=== PATIENT | female | born 1960 | race African-American/Black ===

== ENCOUNTER 2020-12-04 15:09 | Emergency (ER) | payer BC ==
[2020-12-04] MEDS ORDERED: MORPHINE 4 MG/ML SYR ONE (15:56)
--- NOTE | 2020-12-04 16:15 | RAD REPORT ---
EXAM DESCRIPTION: RAD - Humerus Left - 12/04/2020 4:08 pm CLINICAL HISTORY: Left arm pain status post fall FINDINGS: Comminuted fracture mid left humerus with marked displacement of fracture fragments and a ngulation present at the fracture site
--- NOTE | 2020-12-04 16:16 | RAD REPORT ---
EXAM DESCRIPTION: [place] Single View12/04/2020 4:08 pm CLINICAL HISTORY: Chest pain COMPARISON: none FINDINGS: The lungs appear clear of acute infiltrate. The heart is probably upper limits normal siz e. A central venous catheter has its tip in the superior vena cava IMPRESSION: No acute abnormalities displayed
--- NOTE | 2020-12-04 16:45 | EDPHYS ---
Physician Documentation [facility] Name: Eugenia Lopez Age: 60 yrs Sex: Female : 1960 Arrival Date: 12/04/2020 Time: 15:10 Bed 2 Private MD: ED Physician Raymond Locke HPI: 12/04 15:30 This 60 yrs old Black Female presents to ER via EMS with complaints of Fall Injury, Arm cp Injury. 15:30 The patient or guardian complains of injury, pain, that is acute. cp 15:30 The complaints affect the left upper arm. Context: resulted from a fall. Onset: The cp symptoms/episode began/occurred just prior to arrival. Treatment prior to arrival includes: sling. Associated signs and symptoms: Pertinent negatives: numbness, LOC. Historical: - Allergies: 15:14 No Known Allergies; ll1 - PMHx: 15:14 Diabetes - IDDM; Hypertension; High Cholesterol; ll1 - PSHx: 15:14 port L chest-breast CA/double mastectomy; ll1 - Immunization history:: Flu vaccine is up to date. - Social history:: Smoking status: Patient denies any tobacco usage or history of. - Immunization history: Last tetanus immunization: - up to date. ROS: 15:35 MS/extremity: Positive for injury or acute deformity, swelling, tenderness, of the left cp upper arm, Negative for paresthesias. 15:35 Neck: Negative for pain with movement, pain at rest, stiffness, tenderness, bony cp tenderness. 15:35 Cardiovascular: Negative for chest pain. 15:35 Back: Negative for pain at rest, pain with movement. 15:35 Neuro: Negative for altered mental status, headache, loss of consciousness, syncope. 15:35 All other systems are negative. Exam: 15:42 Constitutional: The patient appears in no acute distress, alert, awake, cp non-diaphoretic, non-toxic, well developed, well nourished. 15:42 Head/Face: Normocephalic, atraumatic. cp 15:42 Neck: C-spine: vertebral tenderness, is not appreciated, crepitus, is not appreciated, ROM/movement: is normal, is supple, without pain, no range of motions limitations. 15:42 Chest/axilla: Inspection: normal, Palpation: is normal, no crepitus, no tenderness. 15:42 Cardiovascular: Rate: normal, Rhythm: regular, Pulses: Pulses are 2+ in left radial artery. 15:42 Respiratory: the patient does not display signs of respiratory distress, Respirations: normal, no use of accessory muscles, no retractions, labored breathing, is not present, Breath sounds: are clear throughout, no decreased breath sounds. 15:42 Abdomen/GI: Inspection: abdomen appears normal, Palpation: abdomen is soft and non-tender, in all quadrants. 15:42 Back: pain, is absent, ROM is normal, vertebral tenderness, is not appreciated. 15:42 Musculoskeletal/extremity: Extremities: grossly normal except: noted in the left upper arm: decreased ROM, deformity, pain, swelling, tenderness, ROM: limited passive range of motion due to pain, in the left upper arm, Perfusion: the extremity is normally perfused throughout, the left upper arm Severe pain noted. 15:42 Neuro: Orientation: to person, place \T\ time. Mentation: is normal. Vital Signs: 15:10 BP 167 / 82; Pulse 80; Resp 17; Temp 98.4; Pulse Ox 95% on R/A; Weight 86.64 kg; Height ll1 5 ft. 2 in. (157.48 cm); Pain 7/10; 16:10 BP 152 / 80; Pulse 78; Resp 18; Pulse Ox 95% on R/A; ph 17:05 BP 149 / 89; Pulse 85; Resp 18; Temp 97.6; Pulse Ox 96% on R/A; ph 15:10 Body Mass Index 34.93 (86.64 kg, 157.48 cm) ll1 Marcella Coma Score: 15:10 Eye Response: spontaneous(4). Verbal Response: oriented(5). Motor Response: obeys ph commands(6). Total: 15. 16:10 Eye Response: spontaneous(4). Verbal Response: oriented(5). Motor Response: obeys ph commands(6). Total: 15. 17:05 Eye Response: spontaneous(4). Verbal Response: oriented(5). Motor Response: obeys ph commands(6). Total: 15. Trauma Score (Adult): 15:10 Eye Response: spontaneous(1); Verbal Response: oriented(1); Motor Response: obeys ph commands(2); Systolic BP: > 89 mm Hg(4); Respiratory Rate: 10 to 29 per min(4); Earle Score: 15; Trauma Score: 12 16:10 Eye Response: spontaneous(1); Verbal Response: oriented(1); Motor Response: obeys ph commands(2); Systolic BP: > 89 mm Hg(4); Respiratory Rate: 10 to 29 per min(4); Earle Score: 15; Trauma Score: 12 17:05 Eye Response: spontaneous(1); Verbal Response: oriented(1); Motor Response: obeys ph commands(2); Systolic BP: > 89 mm Hg(4); Respiratory Rate: 10 to 29 per min(4); Marcella Score: 15; Trauma Score: 12 Procedures: 17:15 Splinting: Splint applied to left upper arm using alfredito wrap, Orthoglass splint, sling, cp applied by tech. Examined by me, post splint application: neurovascular intact, Patient tolerated well. MDM: 15:20 Patient medically screened. cp 16:30 Physician consultation: Justin Colin MD was contacted at 16:30, regarding patient's cp condition, outpatient follow-up, and will see patient in office, in 2-3 days. 16:45 Data reviewed: vital signs, nurses notes, radiologic studies, plain films, I have cp discussed the patient's presentation/case with the attending Emergency Department Physician;. 16:45 Differential diagnosis: dislocation, open fracture, closed fracture, contusion. cp Counseling: I had a detailed discussion with the patient and/or guardian regarding: the historical points, exam findings, and any diagnostic results supporting the discharge/admit diagnosis, radiology results, the need for outpatient follow up, for definitive care, a orthopedic surgeon, to return to the emergency department if symptoms worsen or persist or if there are any questions or concerns that arise at home. Response to treatment: the patient's symptoms have markedly improved after treatment, and as a result, I will discharge patient. 12/04 15:22 Order name: XRAY Humerus LEFT cp 12/04 15:22 Order name: XRAY Chest (1 view) cp 12/04 16:35 Order name: Splint: coaptation splint; Complete Time: 16:41 cp Administered Medications: 15:44 Drug: morphine 4 mg {Note: Administered IM R gluteal. RASS-0.} Route: IVP; Site: Other; ll1 16:47 Follow up: Response: No adverse reaction ph Disposition: 17:20 Chart complete. cp 12/05 06:21 Co-signature as Attending Physician, Raymond Locke MD I agree with the assessment and [facility] plan of care. Disposition: 12/04/20 16:45 Discharged to Home. Impression: Displaced transverse fracture of shaft of humerus, left arm, Fall on same level from slipping, tripping and stumbling. - Condition is Stable. - Discharge Instructions: Humerus Fracture Treated With ORIF, Intramedullary Nailing of Humeral Shaft Fractures, Care After. - Prescriptions for Tylenol- Codeine #3 300-30 mg Oral Tablet - take 2 tablets by ORAL route every 4-6 hours As needed; 20 tablet. - Medication Reconciliation Form, Thank You Letter, Antibiotic Education, Prescription Opioid Use form. - Follow up: Justin Colin MD; When: 1 - 2 days; Reason: left humerus fracture. - Problem is new. - Symptoms have improved. Signatures: Dispatcher [employer] EDRaymond Mcadams MD MD cha Hall, Patricia, RN RN ph Raymond Rinaldi PA PA cp Gabriela Gauthier1 Kimberly Borges RN RN ll1 Corrections: (The following items were deleted from the chart) 12/04 16:46 16:45 12/04/2020 16:45 Discharged to Home. Impression: Displaced transverse fracture of cp shaft of humerus, left arm. Condition is Stable. Forms are Medication Reconciliation Form, Thank You Letter, Antibiotic Education, Prescription Opioid Use. Follow up: Dr. Justin Colin; When: 1 - 2 days; Reason: left humerus fracture. Problem is new. Symptoms have improved. cp 17:03 16:46 12/04/2020 16:45 Discharged to Home. Impression: Displaced transverse fracture of kj1 shaft of humerus, left arm; Fall on same level from slipping, tripping and stumbling. Condition is Stable. Discharge Instructions: Humerus Fracture Treated With ORIF, Intramedullary Nailing of Humeral Shaft Fractures, Care After. Prescriptions for Tylenol-Codeine #3 300-30 mg Oral Tablet - take 2 tablets by ORAL route every 4-6 hours As needed; 20 tablet. and Forms are Medication Reconciliation Form, Thank You Letter, Antibiotic Education, Prescription Opioid Use. Follow up: Dr. Justin Colin; When: 1 - 2 days; Reason: left humerus fracture. Problem is new. Symptoms have improved. cp 17:16 17:03 12/04/2020 16:45 Discharged to Home. Impression: Displaced transverse fracture of ph shaft of humerus, left arm; Fall on same level from slipping, tripping and stumbling. Condition is Stable. Discharge Instructions: Humerus Fracture Treated With ORIF, Intramedullary Nailing of Humeral Shaft Fractures, Care After. Prescriptions for Tylenol-Codeine #3 300-30 mg Oral Tablet - take 2 tablets by ORAL route every 4-6 hours As needed; 20 tablet. and Forms are Medication Reconciliation Form, Thank You Letter, Antibiotic Education, Prescription Opioid Use. Follow up: Dr. Justin Colin; When: 1 - 2 days; Reason: left humerus fracture. Problem is new. Symptoms have improved. kj1
--- NOTE | 2020-12-04 16:45 | ER ---
Nurse's Notes [facility] Name: Eugenia Lopez Age: 60 yrs Sex: Female : 1960 Arrival Date: 12/04/2020 Time: 15:10 Bed 2 Private MD: Diagnosis: Displaced transverse fracture of shaft of humerus, left arm;Fall on same level from slipping, tripping and stumbling Presentation: 12/04 15:10 Chief complaint: Patient states: Trip and fall at work 30 min [employer]. Landed on L ll1 shoulder. EMS reports obvious deformity to L upper arm. PMS intact. No LOC. No blood thinners, aspirin only. Coronavirus screen: Client denies travel out of the [place] in the last 14 days. At this time, the client does not indicate any symptoms associated with coronavirus-19. Ebola Screen: Patient denies travel to an Ebola-affected area in the 21 days before illness onset. Initial Sepsis Screen: Does the patient meet any 2 criteria? No. Patient's initial sepsis screen is negative. Does the patient have a suspected source of infection? Yes: Bone or joint infection. Risk Assessment: Do you want to hurt yourself or someone else? Patient reports no desire to harm self or others. Onset of symptoms was December 04, 2020. 15:10 Method Of Arrival: EMS: [facility] ll1 15:10 Acuity: LIA 3 ll1 15:10 Care prior to arrival: sling to L arm. Mechanism of Injury: Fall from standing ph position. Trauma event details: Injury occurred in the [facility], Injury occurred: in a public building. Injury occurred: December 04, 2020. 15:15 Chief complaint: EMS states: VSS. Fingerstick 353. Sling LUE. ll1 Trauma Activation: Not Applicable Physician: ED Physician; Name: ; Notified At: ; Arrived At: Physician: General Surgeon; Name: ; Notified At: ; Arrived At: Physician: Radiology; Name: ; Notified At: ; Arrived At: Physician: Respiratory; Name: ; Notified At: ; Arrived At: Physician: Lab; Name: ; Notified At: ; Arrived At: Historical: - Allergies: 15:14 No Known Allergies; ll1 - PMHx: 15:14 Diabetes - IDDM; Hypertension; High Cholesterol; ll1 - PSHx: 15:14 port L chest-breast CA/double mastectomy; ll1 - Immunization history:: Flu vaccine is up to date. - Social history:: Smoking status: Patient denies any tobacco usage or history of. - Immunization history: Last tetanus immunization: - up to date. Screenin:13 Abuse screen: Denies threats or abuse. Denies injuries from another. Nutritional ph screening: No deficits noted. Tuberculosis screening: No symptoms or risk factors identified. Fall Risk None identified. Primary Survey: 15:20 NO uncontrolled hemorrhage observed. A: The patient is alert. Airway: patent, No ph supplemental oxygen in use on arrival. Breathing/Chest: Respiratory pattern: regular, Respiratory effort: spontaneous, unlabored, Chest inspection: symmetrical rise and fall of the chest. Circulation: Skin color: pink, Skin temperature: warm, dry. Disability Alert. Exposure/Environment: All clothing and personal items were removed. Forensic evidence collection is not deemed to be indicated at this time. Items placed in patient belonging bag. There is no evidence of uncontrolled external bleeding. Obvious injury(ies) are noted at this time: obvious deformity to L upper arm. 17:10 Reassessment Airway Airway Patent Breathing/Chest Respiratory pattern Regular ph Respiratory effort Spontaneous Unlabored Circulation Pulses Palpable Color [place] Temperature Warm Dry Disability Alert. Assessment: 15:30 General: Appears in no apparent distress. comfortable, well groomed, Behavior is calm, ph cooperative, appropriate for age. Pain: Complains of pain in left bicep. Neuro: Level of Consciousness is awake, alert, obeys commands, Oriented to person, place, time, situation. Cardiovascular: Capillary refill < 3 seconds in bilateral fingers Patient's skin is warm and dry. Pulses are palpable in right radial artery and left radial artery. Respiratory: Airway is patent Respiratory effort is even, unlabored. Derm: Skin is intact, is healthy with good turgor, Skin is pink, warm \T\ dry. 17:08 Reassessment: Patient appears in no apparent distress at this time. Patient and/or ph family updated on plan of care and expected duration. Pain level reassessed. Patient is alert, oriented x 3, equal unlabored respirations, skin warm/dry/pink. Pt d/c home w/ daughter, instructed on splint care and to follow up w/ orthopedist. Vital Signs: 15:10 BP 167 / 82; Pulse 80; Resp 17; Temp 98.4; Pulse Ox 95% on R/A; Weight 86.64 kg; Height ll1 5 ft. 2 in. (157.48 cm); Pain 7/10; 16:10 BP 152 / 80; Pulse 78; Resp 18; Pulse Ox 95% on R/A; ph 17:05 BP 149 / 89; Pulse 85; Resp 18; Temp 97.6; Pulse Ox 96% on R/A; ph 15:10 Body Mass Index 34.93 (86.64 kg, 157.48 cm) ll1 Earle Coma Score: 15:10 Eye Response: spontaneous(4). Verbal Response: oriented(5). Motor Response: obeys ph commands(6). Total: 15. 16:10 Eye Response: spontaneous(4). Verbal Response: oriented(5). Motor Response: obeys ph commands(6). Total: 15. 17:05 Eye Response: spontaneous(4). Verbal Response: oriented(5). Motor Response: obeys ph commands(6). Total: 15. Trauma Score (Adult): 15:10 Eye Response: spontaneous(1); Verbal Response: oriented(1); Motor Response: obeys ph commands(2); Systolic BP: > 89 mm Hg(4); Respiratory Rate: 10 to 29 per min(4); Sunderland Score: 15; Trauma Score: 12 16:10 Eye Response: spontaneous(1); Verbal Response: oriented(1); Motor Response: obeys ph commands(2); Systolic BP: > 89 mm Hg(4); Respiratory Rate: 10 to 29 per min(4); Earle Score: 15; Trauma Score: 12 17:05 Eye Response: spontaneous(1); Verbal Response: oriented(1); Motor Response: obeys ph commands(2); Systolic BP: > 89 mm Hg(4); Respiratory Rate: 10 to 29 per min(4); Sunderland Score: 15; Trauma Score: 12 ED Course: 15:10 Patient arrived in ED. 1 15:12 Ana Arias, RN is Primary Nurse. ph 15:12 Triage completed. 1 15:12 Arm band placed on Patient placed in an exam room, on a stretcher. 1 15:16 Raymond Rinaldi PA is PHCP. cp 15:16 Raymond Locke MD is Attending Physician. cp 15:30 Patient has correct armband on for positive identification. Bed in low position. Call ph light in reach. Side rails up X 1. Pulse ox on. NIBP on. Door closed. Warm blanket given. 16:08 XRAY Humerus LEFT In Process Unspecified. EDMS 16:09 XRAY Chest (1 view) In Process Unspecified. EDMS 16:43 Justin Colin MD is Referral Physician. cp 16:44 Kyaw wrap to Left Arm Orthoglass splint: Coaptation splint applied on left arm. Shoulder jp3 immobilizer applied on left shoulder. 17:13 No provider procedures requiring assistance completed. Patient did not have IV access ph during this emergency room visit. 17:15 Patient maintains SpO2 saturation greater than 95% on room air. Thermoregulation: warm ph blanket given to patient. Administered Medications: 15:44 Drug: morphine 4 mg {Note: Administered IM R gluteal. RASS-0.} Route: IVP; Site: Other; ll1 16:47 Follow up: Response: No adverse reaction ph Intake: 15:10 PO: 0ml; Total: 0ml. ph Output: 15:10 Urine: 0ml; Total: 0ml. ph Outcome: 16:45 Discharge ordered by MD. cp 17:15 Discharged to home ambulatory, with family. ph 17:15 Condition: good 17:15 Discharge instructions given to patient, Instructed on discharge instructions, follow up and referral plans. medication usage, Demonstrated understanding of instructions, follow-up care, medications, Prescriptions given X 1. 17:16 Patient's length of stay was not longer than 2 hours. ph 17:16 Patient left the ED. ph Signatures: Dispatcher [employer] [facility] Ana Arias RN RN Raymond Jones PA PA cp Pisarski, Jacob jp3 Kimberly Borges RN RN ll1
[2020-12-04 17:28] VITALS: BP 149/89; TEMP 97.6; O2SAT 96
== END 2020-12-04 17:16 | disposition home or self-care (01) ==
LOC: ER 15:09
DX: S42.322A Displaced transverse fracture of shaft of humerus, left arm, initial encounter for closed fracture (principal); W01.0XXA Fall on same level from slipping, tripping and stumbling without subsequent striking against object, initial encounter; Y93.9 Activity, unspecified; Y92.9 Unspecified place or not applicable; Z90.13 Acquired absence of bilateral breasts and nipples; I10 Essential (primary) hypertension
CPT/HCPCS: 71045; 96374; 99284